=== PATIENT | male | born 1950 | race Caucasian/White ===

== ENCOUNTER 2020-04-22 16:46 | Inpatient (IN) | payer MEDICAID ==
[~2020-04-22] VITALS: Ht 165.1 cm; Wt 74.4 kg
[2020-04-22 17:21] LABS: CHLORIDE 108 mEq/L (98-107)
[2020-04-22 17:24] LABS: BASOPHILS % 0.1 % (0.0-2.0); HEMATOCRIT. 40.3 % (42.0-52.0); HEMOGLOBIN. 13.7 g/dL (14.0-18.0); LYMPHOCYTES % 7.9 % (20.0-50.0); MEAN CORPUSCULAR HEMOGLOBIN 31.6 pg (28.0-32.0); MEAN PLATELET VOLUME 8.2 fl (7.4-10.4); MONOCYTES % 2.7 % (2.0-8.0); NEUTROPHILS % 89.3 % (40.0-76.0); PLATELET 176 x1000/uL (130-400); PROTHROMBIN TIME 10.9 sec (9.6-11.0); RED BLOOD CELL COUNT 4.34 mill/uL (4.7-6.1); RED CELL DISTRIBUTION WIDTH 13.1 % (11.6-14.6)
[2020-04-22 17:25] LABS: ETHANOL BLOOD < 10 mg/dL
[2020-04-22 17:28] LABS: LDL CHOLESTEROL 130 mg/dL (5-100)
[2020-04-22 18:02] LABS: CLARITY URINE CLEAR (CLEAR); COLOR URINE YELLOW (YELLOW); KETONES URINE NEGATIVE (NEGATIVE); LEUKOCYTE ESTERASE URINE 1+ (NEGATIVE); NITRITE URINE POSITIVE (NEGATIVE); OCCULT BLOOD URINE NEGATIVE (NEGATIVE); PROTEIN URINE NEGATIVE (NEGATIVE); UROBILINOGEN URINE 0.2 E.U./dL (0.2-1.0)
[2020-04-22 18:14] LABS: *AMPHETAMINES SCREEN URINE NEGATIVE (NEGATIVE); *BARBITURATES SCREEN URINE NEGATIVE (NEGATIVE); *BENZODIAZEPINES SCREEN URINE NEGATIVE (NEGATIVE); *COCAINE SCREEN URINE NEGATIVE (NEGATIVE); METHADONE URINE SCREEN NEGATIVE (NEGATIVE); OPIATES URINE SCREEN NEGATIVE (NEGATIVE)
[2020-04-22 18:15] LABS: CANNABINOID URINE SCREEN NEGATIVE (NEGATIVE); PHENCYCLIDINE URINE SCREEN NEGATIVE (NEGATIVE)
[2020-04-22] MEDS ORDERED: ASPIRIN 81MG TABLET PO ONE (18:30)
[2020-04-22] MEDS ORDERED: SODIUM CHLORIDE 0.9% 500 ML IV ONE (18:30)
[2020-04-22] MEDS ORDERED: CEFTRIAXONE 1 G PREMIX 50 ML IV SCH (19:15)
[2020-04-22] MEDS ORDERED: GUAIFENESIN 200MG/10ML SUGAR FREE UDC PO PRN (20:00)
[2020-04-22] MEDS ORDERED: NITROGLYCERIN 0.4MG TABLET SL SL PRN (20:00)
[2020-04-22] MEDS ORDERED: MAGNESIUM/ALUMINUM HYDROXIDE/SIMETHICONE 30ML UDC PO PRN (20:00)
[2020-04-22] MEDS ORDERED: ACETAMINOPHEN 325MG TABLET PO PRN ×2 (20:00)
[2020-04-22] MEDS ORDERED: IPRATROPIUM/ALBUTEROL 0.5-3(2.5)MG/3ML NEB ORI PRN (20:00)
[2020-04-22] MEDS ORDERED: ZOLPIDEM TARTRATE 5MG TABLET PO PRN (20:00)
[2020-04-22] MEDS ORDERED: ONDANSETRON HCL 4MG/2ML INJ IV PRN (20:00)
[2020-04-22] MEDS ORDERED: CLONIDINE 0.1MG TABLET PO PRN (20:00)
[2020-04-22] MEDS ORDERED: DOCUSATE SODIUM 100MG CAPSULE PO PRN (20:00)
[2020-04-22 20:43] LABS: TOTAL IRON BINDING CAPACITY 366 ug/dL (250-450)
[2020-04-22 20:45] LABS: HDL CHOLESTEROL 43 mg/dL (40-59)
[2020-04-22] MEDS ORDERED: IOHEXOL-350 100 ML BOTTLE ONE (21:04)
[2020-04-22 21:11] LABS: VITAMIN B12 SERUM 1207 pg/mL (211-911)
[2020-04-22 21:18] LABS: FOLIC ACID (FOLATE) SERUM > 20.00 ng/mL (>5.38)
[2020-04-22 23:11] LABS: CREATINE KINASE 57 IU/L (39-308)
[2020-04-22 23:12] LABS: CREATINE KINASE MB FRACTION < 1.0 ng/mL (0.5-3.6)
[2020-04-23] MEDS: ENOXAPARIN 40MG/0.4ML SYR SUBCUT SCH ×2 (00:31→21:38)
[2020-04-23] MEDS: FAMOTIDINE 20MG TABLET PO SCH ×3 (00:31→21:37)
[2020-04-23] MEDS: ASCORBIC ACID 500 MG TABLET PO SCH ×3 (00:31→21:37)
[2020-04-23] MEDS: ATORVASTATIN CALCIUM 10MG TABLET PO SCH ×2 (00:31→21:37)
[2020-04-23 05:32] VITALS: BP 145/70
[2020-04-23 06:00] VITALS: BP 145/70
[2020-04-23] MEDS ORDERED: ATOR10TA MT (06:50)
[2020-04-23] MEDS ORDERED: AMLO5TAB88 MT (06:50)
[2020-04-23] MEDS ORDERED: ATOR40TA70 PO (06:51)
[2020-04-23] MEDS ORDERED: AMLO5TAB88 PO (06:52)
[2020-04-23 08:00] VITALS: BP 167/92
[2020-04-23] MEDS: ZINC SULFATE 220 MG ( 50 ) CAPSULE PO SCH (08:21)
[2020-04-23] MEDS: CLOPIDOGREL 75MG TABLET PO SCH (08:21)
[2020-04-23 10:36] LABS: CREATINE KINASE 127 IU/L (39-308)
[2020-04-23 10:37] LABS: CREATINE KINASE MB FRACTION < 1.0 ng/mL (0.5-3.6)
[2020-04-23 12:01] VITALS: BP 159/86
[2020-04-23 16:00] VITALS: BP 131/76
[2020-04-23 19:37] VITALS: BP 146/85
[2020-04-23] MEDS ORDERED: CEFTRIAXONE 1,000 MG in DEXTROSE 5% WATER 50 ML IV SCH (21:00)
[2020-04-23] MEDS: CEFTRIAXONE 1,000 MG in DEXTROSE 5% WATER 50 ML IV SCH (21:38)
[2020-04-24 00:30] VITALS: BP 142/78
[2020-04-24 03:44] VITALS: BP 140/75
[2020-04-24 08:00] VITALS: BP 142/77
[2020-04-24] MEDS: ZINC SULFATE 220 MG ( 50 ) CAPSULE PO SCH (08:34)
[2020-04-24] MEDS: CLOPIDOGREL 75MG TABLET PO SCH (08:34)
[2020-04-24] MEDS: ASCORBIC ACID 500 MG TABLET PO SCH ×2 (08:34→20:58)
[2020-04-24] MEDS: FAMOTIDINE 20MG TABLET PO SCH ×2 (08:34→20:58)
[2020-04-24 12:00] VITALS: BP 146/80
[2020-04-24 16:00] VITALS: BP 127/77
[2020-04-24 20:00] VITALS: BP 130/81
[2020-04-24] MEDS: CEFTRIAXONE 1,000 MG in DEXTROSE 5% WATER 50 ML IV SCH (20:58)
[2020-04-24] MEDS: ATORVASTATIN CALCIUM 10MG TABLET PO SCH (20:58)
[2020-04-24] MEDS: ENOXAPARIN 40MG/0.4ML SYR SUBCUT SCH (21:00)
[2020-04-25 00:30] VITALS: BP 125/78
[2020-04-25 04:00] VITALS: BP 122/80
[2020-04-25] MEDS: ZINC SULFATE 220 MG ( 50 ) CAPSULE PO SCH (08:57)
[2020-04-25] MEDS: FAMOTIDINE 20MG TABLET PO SCH ×2 (08:57→20:47)
[2020-04-25] MEDS: CLOPIDOGREL 75MG TABLET PO SCH (08:57)
[2020-04-25] MEDS: ASCORBIC ACID 500 MG TABLET PO SCH ×2 (08:57→20:47)
[2020-04-25 09:06] VITALS: BP 128/72
[2020-04-25] MEDS ORDERED: LACTULOSE 20G/30ML UDC PO PRN (09:30)
[2020-04-25 12:00] VITALS: BP 143/79
[2020-04-25 16:00] VITALS: BP 148/70
[2020-04-25] MEDS: DOCUSATE SODIUM 100MG CAPSULE PO SCH (17:04)
[2020-04-25 20:00] VITALS: BP 155/54
[2020-04-25] MEDS: ATORVASTATIN CALCIUM 10MG TABLET PO SCH (20:47)
[2020-04-25] MEDS: CEFTRIAXONE 1,000 MG in DEXTROSE 5% WATER 50 ML IV SCH (20:47)
[2020-04-25] MEDS: POLYETHYLENE GLYCOL 3350 (17GM) 1 DOSE PACK PO SCH (20:53)
[2020-04-25] MEDS: ENOXAPARIN 40MG/0.4ML SYR SUBCUT SCH (20:53)
[2020-04-26] VITALS: BP 146/78
[2020-04-26 04:00] VITALS: BP 162/80
[2020-04-26 08:00] VITALS: BP 155/82
[2020-04-26] MEDS: FAMOTIDINE 20MG TABLET PO SCH ×2 (08:21→21:12)
[2020-04-26] MEDS: CLOPIDOGREL 75MG TABLET PO SCH (08:21)
[2020-04-26] MEDS: DOCUSATE SODIUM 100MG CAPSULE PO SCH ×2 (08:21→16:59)
[2020-04-26] MEDS: ZINC SULFATE 220 MG ( 50 ) CAPSULE PO SCH (08:21)
[2020-04-26] MEDS: ASCORBIC ACID 500 MG TABLET PO SCH ×2 (08:21→21:12)
[2020-04-26 12:00] VITALS: BP 138/83
[2020-04-26 16:00] VITALS: BP 123/72
[2020-04-26 20:00] VITALS: BP 134/71
[2020-04-26] MEDS: CEFTRIAXONE 1,000 MG in DEXTROSE 5% WATER 50 ML IV SCH (21:11)
[2020-04-26] MEDS: ENOXAPARIN 40MG/0.4ML SYR SUBCUT SCH (21:12)
[2020-04-26] MEDS: ATORVASTATIN CALCIUM 10MG TABLET PO SCH (21:12)
[2020-04-26] MEDS: POLYETHYLENE GLYCOL 3350 (17GM) 1 DOSE PACK PO SCH (21:13)
[2020-04-27] VITALS: BP 130/75
[2020-04-27 04:00] VITALS: BP 147/76
[2020-04-27 08:00] VITALS: BP 157/80
[2020-04-27] MEDS: ZINC SULFATE 220 MG ( 50 ) CAPSULE PO SCH (08:17)
[2020-04-27] MEDS: ASCORBIC ACID 500 MG TABLET PO SCH ×2 (08:18→21:34)
[2020-04-27] MEDS: CLOPIDOGREL 75MG TABLET PO SCH (08:18)
[2020-04-27] MEDS: DOCUSATE SODIUM 100MG CAPSULE PO SCH ×2 (08:18→16:35)
[2020-04-27] MEDS: FAMOTIDINE 20MG TABLET PO SCH ×2 (08:18→21:34)
[2020-04-27 12:00] VITALS: BP 148/84
[2020-04-27 16:00] VITALS: BP 144/93
[2020-04-27 20:00] VITALS: BP 143/77
[2020-04-27] MEDS: CEFTRIAXONE 1,000 MG in DEXTROSE 5% WATER 50 ML IV SCH (21:34)
[2020-04-27] MEDS: POLYETHYLENE GLYCOL 3350 (17GM) 1 DOSE PACK PO SCH (21:34)
[2020-04-27] MEDS: ATORVASTATIN CALCIUM 10MG TABLET PO SCH (21:34)
[2020-04-27] MEDS: ENOXAPARIN 40MG/0.4ML SYR SUBCUT SCH (21:34)
[2020-04-28] VITALS: BP 140/70
[2020-04-28 04:00] VITALS: BP 139/87
[2020-04-28] MEDS: ZINC SULFATE 220 MG ( 50 ) CAPSULE PO SCH (09:15)
[2020-04-28] MEDS: ASCORBIC ACID 500 MG TABLET PO SCH ×2 (09:15→21:37)
[2020-04-28] MEDS: FAMOTIDINE 20MG TABLET PO SCH ×2 (09:15→21:30)
[2020-04-28] MEDS: DOCUSATE SODIUM 100MG CAPSULE PO SCH ×2 (09:15→16:43)
[2020-04-28] MEDS: CLOPIDOGREL 75MG TABLET PO SCH (09:16)
[2020-04-28 12:00] VITALS: BP 128/76
[2020-04-28 16:00] VITALS: BP_SYST 119; BP_SYST 146; BP_DIAS 50; BP_DIAS 88
[2020-04-28 20:00] VITALS: BP 132/80
[2020-04-28] MEDS: ATORVASTATIN CALCIUM 10MG TABLET PO SCH (21:30)
[2020-04-28] MEDS: ENOXAPARIN 40MG/0.4ML SYR SUBCUT SCH (21:31)
[2020-04-28] MEDS: CEFTRIAXONE 1,000 MG in DEXTROSE 5% WATER 50 ML IV SCH (21:31)
[2020-04-28] MEDS: POLYETHYLENE GLYCOL 3350 (17GM) 1 DOSE PACK PO SCH (21:31)
[2020-04-29] VITALS: BP 155/87
[2020-04-29 04:00] VITALS: BP 140/73
[2020-04-29 08:00] VITALS: BP 147/76
[2020-04-29] MEDS: FAMOTIDINE 20MG TABLET PO SCH ×2 (09:44→21:08)
[2020-04-29] MEDS: ASCORBIC ACID 500 MG TABLET PO SCH ×2 (09:44→21:08)
[2020-04-29] MEDS: DOCUSATE SODIUM 100MG CAPSULE PO SCH (09:44)
[2020-04-29] MEDS: CLOPIDOGREL 75MG TABLET PO SCH (09:44)
[2020-04-29] MEDS: ZINC SULFATE 220 MG ( 50 ) CAPSULE PO SCH (09:44)
[2020-04-29 13:10] LABS: 25-HYDROXY VITAMIN D3 21 ng/mL (.)
[2020-04-29 20:00] VITALS: BP 160/90
[2020-04-29] MEDS: ENOXAPARIN 40MG/0.4ML SYR SUBCUT SCH (21:08)
[2020-04-29] MEDS: POLYETHYLENE GLYCOL 3350 (17GM) 1 DOSE PACK PO SCH (21:08)
[2020-04-29] MEDS: ATORVASTATIN CALCIUM 10MG TABLET PO SCH (21:08)
[2020-04-30 00:44] VITALS: BP 160/77
[2020-04-30 04:00] VITALS: BP 104/65
[2020-04-30 05:53] LABS: CHLORIDE 107 mEq/L (98-107)
[2020-04-30 08:00] VITALS: BP 120/67
[2020-04-30 08:34] LABS: BASOPHILS % 0.5 % (0.0-2.0); EOSINOPHILS % 5.3 % (0.0-5.0); HEMATOCRIT. 40.4 % (42.0-52.0); HEMOGLOBIN. 13.7 g/dL (14.0-18.0); LYMPHOCYTES % 29.3 % (20.0-50.0); MEAN CORPUSCULAR HEMOGLOBIN 31.5 pg (28.0-32.0); MEAN CORPUSCULAR VOLUME 93.2 fL (80.0-94.0); MEAN PLATELET VOLUME 8.3 fl (7.4-10.4); MONOCYTES % 8.1 % (2.0-8.0); NEUTROPHILS % 56.8 % (40.0-76.0); PLATELET 202 x1000/uL (130-400); RED BLOOD CELL COUNT 4.34 mill/uL (4.7-6.1); RED CELL DISTRIBUTION WIDTH 13.3 % (11.6-14.6)
[2020-04-30] MEDS: ZINC SULFATE 220 MG ( 50 ) CAPSULE PO SCH (08:34)
[2020-04-30] MEDS: CLOPIDOGREL 75MG TABLET PO SCH (08:34)
[2020-04-30] MEDS: FAMOTIDINE 20MG TABLET PO SCH ×2 (08:34→20:49)
[2020-04-30] MEDS: ASCORBIC ACID 500 MG TABLET PO SCH ×2 (08:35→20:49)
[2020-04-30] MEDS: DOCUSATE SODIUM 100MG CAPSULE PO SCH (08:35)
[2020-04-30 12:00] VITALS: BP 137/79
[2020-04-30 16:00] VITALS: BP 121/65
[2020-04-30] MEDS ORDERED: ERGOCALCIFEROL 50000UNITS CAPSULE PO SCH (16:00)
[2020-04-30 20:00] VITALS: BP 153/73
[2020-04-30] MEDS: ATORVASTATIN CALCIUM 10MG TABLET PO SCH (20:49)
[2020-04-30] MEDS: POLYETHYLENE GLYCOL 3350 (17GM) 1 DOSE PACK PO SCH (20:50)
[2020-04-30] MEDS: ENOXAPARIN 40MG/0.4ML SYR SUBCUT SCH (20:50)
[2020-05-01] VITALS: BP 131/79
[2020-05-01 04:00] VITALS: BP 114/70
[2020-05-01 08:00] VITALS: BP 146/83
[2020-05-01] MEDS: DOCUSATE SODIUM 100MG CAPSULE PO SCH ×2 (08:41→16:05)
[2020-05-01] MEDS: ZINC SULFATE 220 MG ( 50 ) CAPSULE PO SCH (08:42)
[2020-05-01] MEDS: FAMOTIDINE 20MG TABLET PO SCH ×2 (08:42→21:28)
[2020-05-01] MEDS: ASCORBIC ACID 500 MG TABLET PO SCH ×2 (08:42→21:29)
[2020-05-01] MEDS: CLOPIDOGREL 75MG TABLET PO SCH (08:42)
[2020-05-01 12:00] VITALS: BP 144/74
[2020-05-01 16:00] VITALS: BP 134/69
[2020-05-01 20:00] VITALS: BP 127/74
[2020-05-01] MEDS: ATORVASTATIN CALCIUM 10MG TABLET PO SCH (21:28)
[2020-05-01] MEDS: ENOXAPARIN 40MG/0.4ML SYR SUBCUT SCH (21:29)
[2020-05-01] MEDS: POLYETHYLENE GLYCOL 3350 (17GM) 1 DOSE PACK PO SCH (21:30)
[2020-05-02] VITALS: BP 121/70
[2020-05-02 04:00] VITALS: BP 112/60
[2020-05-02 08:00] VITALS: BP 147/78
[2020-05-02] MEDS: ZINC SULFATE 220 MG ( 50 ) CAPSULE PO SCH (08:19)
[2020-05-02] MEDS: DOCUSATE SODIUM 100MG CAPSULE PO SCH ×2 (08:19→18:00)
[2020-05-02] MEDS: FAMOTIDINE 20MG TABLET PO SCH ×2 (08:19→20:16)
[2020-05-02] MEDS: ASCORBIC ACID 500 MG TABLET PO SCH ×2 (08:19→20:24)
[2020-05-02] MEDS: CLOPIDOGREL 75MG TABLET PO SCH (08:20)
[2020-05-02 12:00] VITALS: BP_SYST 134; BP_SYST 146; BP_DIAS 90; BP_DIAS 91
[2020-05-02 16:00] VITALS: BP 129/86
[2020-05-02 20:00] VITALS: BP 140/89
[2020-05-02] MEDS: ATORVASTATIN CALCIUM 10MG TABLET PO SCH (20:16)
[2020-05-02] MEDS: POLYETHYLENE GLYCOL 3350 (17GM) 1 DOSE PACK PO SCH (20:23)
[2020-05-02] MEDS: ENOXAPARIN 40MG/0.4ML SYR SUBCUT SCH (20:24)
[2020-05-03] VITALS: BP 126/68
[2020-05-03 04:00] VITALS: BP 136/76
[2020-05-03 08:00] VITALS: BP 139/73
[2020-05-03] MEDS: FAMOTIDINE 20MG TABLET PO SCH ×2 (08:24→21:12)
[2020-05-03] MEDS: ZINC SULFATE 220 MG ( 50 ) CAPSULE PO SCH (08:24)
[2020-05-03] MEDS: DOCUSATE SODIUM 100MG CAPSULE PO SCH ×2 (08:24→17:27)
[2020-05-03] MEDS: ASCORBIC ACID 500 MG TABLET PO SCH ×2 (08:24→21:12)
[2020-05-03] MEDS: CLOPIDOGREL 75MG TABLET PO SCH (08:24)
[2020-05-03 16:00] VITALS: BP 122/74
[2020-05-03 20:00] VITALS: BP 127/72
[2020-05-03] MEDS: ATORVASTATIN CALCIUM 10MG TABLET PO SCH (21:12)
[2020-05-03] MEDS: ENOXAPARIN 40MG/0.4ML SYR SUBCUT SCH (21:12)
[2020-05-03] MEDS: POLYETHYLENE GLYCOL 3350 (17GM) 1 DOSE PACK PO SCH (21:17)
[2020-05-04] VITALS: BP 122/77
[2020-05-04 04:00] VITALS: BP 140/77
[2020-05-04] MEDS: FAMOTIDINE 20MG TABLET PO SCH ×2 (08:34→21:44)
[2020-05-04] MEDS: DOCUSATE SODIUM 100MG CAPSULE PO SCH ×2 (08:34→17:07)
[2020-05-04] MEDS: ZINC SULFATE 220 MG ( 50 ) CAPSULE PO SCH (08:34)
[2020-05-04] MEDS: CLOPIDOGREL 75MG TABLET PO SCH (08:34)
[2020-05-04] MEDS: ASCORBIC ACID 500 MG TABLET PO SCH ×2 (08:34→21:45)
[2020-05-04] MEDS ORDERED: ASCO500T20 PO (09:57)
[2020-05-04] MEDS ORDERED: CLOP75TA15 PO (09:57)
[2020-05-04] MEDS ORDERED: FAMO20TA8 PO (09:57)
[2020-05-04] MEDS ORDERED: ATOR10TA PO (09:57)
[2020-05-04] MEDS ORDERED: ZINC220C2 PO (09:57)
[2020-05-04 16:00] VITALS: BP 134/72
[2020-05-04 20:00] VITALS: BP 150/83
[2020-05-04] MEDS: ATORVASTATIN CALCIUM 10MG TABLET PO SCH (21:44)
[2020-05-04] MEDS: ENOXAPARIN 40MG/0.4ML SYR SUBCUT SCH (21:44)
[2020-05-04] MEDS: POLYETHYLENE GLYCOL 3350 (17GM) 1 DOSE PACK PO SCH (21:45)
[2020-05-05] VITALS: BP 126/76
[2020-05-05 04:00] VITALS: BP 133/81
[2020-05-05 08:00] VITALS: BP 138/83
[2020-05-05] MEDS: ZINC SULFATE 220 MG ( 50 ) CAPSULE PO SCH (08:38)
[2020-05-05] MEDS: CLOPIDOGREL 75MG TABLET PO SCH (08:38)
[2020-05-05] MEDS: DOCUSATE SODIUM 100MG CAPSULE PO SCH ×2 (08:38→17:08)
[2020-05-05] MEDS: ASCORBIC ACID 500 MG TABLET PO SCH ×2 (08:38→20:41)
[2020-05-05] MEDS: FAMOTIDINE 20MG TABLET PO SCH ×2 (08:38→20:41)
[2020-05-05 12:00] VITALS: BP 142/77
[2020-05-05 16:00] VITALS: BP 133/80
[2020-05-05 20:00] VITALS: BP 150/86
[2020-05-05] MEDS: ATORVASTATIN CALCIUM 10MG TABLET PO SCH (20:41)
[2020-05-05] MEDS: POLYETHYLENE GLYCOL 3350 (17GM) 1 DOSE PACK PO SCH (20:41)
[2020-05-05] MEDS: ENOXAPARIN 40MG/0.4ML SYR SUBCUT SCH (20:41)
[2020-05-06] VITALS: BP 123/71
[2020-05-06 04:00] VITALS: BP 139/77
[2020-05-06 08:00] VITALS: BP 143/81
[2020-05-06] MEDS: ZINC SULFATE 220 MG ( 50 ) CAPSULE PO SCH (08:26)
[2020-05-06] MEDS: DOCUSATE SODIUM 100MG CAPSULE PO SCH ×2 (08:26→16:49)
[2020-05-06] MEDS: CLOPIDOGREL 75MG TABLET PO SCH (08:26)
[2020-05-06] MEDS: ASCORBIC ACID 500 MG TABLET PO SCH ×2 (08:26→21:23)
[2020-05-06] MEDS: FAMOTIDINE 20MG TABLET PO SCH ×2 (08:28→21:23)
[2020-05-06 12:00] VITALS: BP 146/81
[2020-05-06 16:00] VITALS: BP 156/81
[2020-05-06 20:00] VITALS: BP 147/79
[2020-05-06] MEDS: ENOXAPARIN 40MG/0.4ML SYR SUBCUT SCH (21:23)
[2020-05-06] MEDS: POLYETHYLENE GLYCOL 3350 (17GM) 1 DOSE PACK PO SCH (21:23)
[2020-05-06] MEDS: ATORVASTATIN CALCIUM 10MG TABLET PO SCH (21:23)
[2020-05-07] VITALS: BP 137/75
[2020-05-07 04:00] VITALS: BP 115/69
[2020-05-07 08:00] VITALS: BP 145/79
[2020-05-07] MEDS: FAMOTIDINE 20MG TABLET PO SCH (08:54)
[2020-05-07] MEDS: ASCORBIC ACID 500 MG TABLET PO SCH (08:54)
[2020-05-07] MEDS: CLOPIDOGREL 75MG TABLET PO SCH (08:54)
[2020-05-07] MEDS: ZINC SULFATE 220 MG ( 50 ) CAPSULE PO SCH (08:54)
[2020-05-07] MEDS: DOCUSATE SODIUM 100MG CAPSULE PO SCH (09:02)
[2020-05-07 12:00] VITALS: BP 136/87
[2020-05-07 16:00] VITALS: BP 136/83
== END 2020-05-07 17:53 | disposition home or self-care (01) | DRG 720 ==
LOC: ER 16:46 → EDBEDREQSVC 19:11 → EDBEDREQ 19:11 → EDBEDREQTM 19:11 → MICUSO 21:58 → 6WST 04-23 03:22 → 6EST 04-25 22:29
PROVIDERS: ADMIT Internal Medicine; ATTEND Internal Medicine
DX: A41.9 Sepsis, unspecified organism (principal); I63.9 Cerebral infarction, unspecified; I65.29 Occlusion and stenosis of unspecified carotid artery; N39.0 Urinary tract infection, site not specified; R13.10 Dysphagia, unspecified; R47.01 Aphasia; I10 Essential (primary) hypertension; G81.91 Hemiplegia, unspecified affecting right dominant side; D63.8 Anemia in other chronic diseases classified elsewhere; E07.9 Disorder of thyroid, unspecified; E78.00 Pure hypercholesterolemia, unspecified; E55.9 Vitamin D deficiency, unspecified; E11.65 Type 2 diabetes mellitus with hyperglycemia; R47.1 Dysarthria and anarthria; Z79.02 Long term (current) use of antithrombotics/antiplatelets; Z79.899 Other long term (current) drug therapy; Z03.818 Encounter for observation for suspected exposure to other biological agents ruled out
CPT/HCPCS: 36415; 70496; 70498; 70544; 70551; 71045; 80048; 80053; 80305; 80320; 81003; 82306; 82550; 82553; 82607; 82746; 82962; 83036; 83540; 83550; 83718; 83721; 84478; 84484; 85025; 87635; 92523; 92610; 93005; 93306; 93880; 93970; 97112; 97116; 97162; 97166; 97530; 97535; 99291; J0696; J1650; J2405; J7060; Q9967; G0480